=== PATIENT | female | born 1930 | race Caucasian/White ===

== ENCOUNTER 2017-04-23 14:23 | Emergency (ER) | payer MEDICARE ==
[~2017-04-23] VITALS: Ht 157.5 cm; Wt 63.6 kg
[~2017-04-23 14:23] MED LIST: /ACETCOD3T PO; /DULO30CA PO; /ESOM40CA PO; /WARF25TA OR; AMBI10TA PO; ASPI325T PO; ASPI81TA83 PO; ATOR1TAB21 PO; COLA100C2 OR; DULO1CAP3 PO; ESTR3TA PO; FOLI1TAB OR; Indapamide PO; METO1TAB87 PO; MILKSUS OR; NEUR300C PO; NEUR600T PO; NEUTSOL PO; NEXI40CA PO; OXYC10TA97 OR; PERC5TAB12 PO; PERC5TAB8 OR; PERC7.5T8 OR; SIMV5TAB2 PO; TENO25TA OR; TUMS500C OR; ZOLP10TA2 PO; ambien PO
[2017-04-23] MEDS ORDERED: diazePAM 2 MG TAB PO ONE (16:00)
--- NOTE | 2017-04-23 17:34 | REP ---
Lumbar spine series: Five views. History: Injury in a fall. Findings: Five views of the lumbar spine are compared with November 2011 prior exam. Findings: There is nearly complete anterior wedging of the T12 vertebral body. There has been progressive loss of vertebral body height at this level since the November 2011 prior study. Mild wedging was present on the 2011 prior exam. Vertebral body heights are otherwise preserved. There is mild disc space narrowing at L4-5 and at L5-S1. Moderate osteoarthritic facet hypertrophy, sclerosis, and joint space narrowing are noted bilaterally at L5-S1, L4-5, and L3-4. These changes are a bit more pronounced than on the 2012 exam. Sacrum and SI joints are intact. Psoas margins are symmetric. No acute fracture is evident. Impression: No acute lumbar spine fracture seen. Old nearly complete collapse of T12. There is reactive spur formation at T11-12 and T12-L1. There has been progressive loss of vertebral body height at T12 since the 2011 prior study. Degenerative disc and osteoarthritic facet changes are noted. Signed by Luis Antonio Carbajal MD 04/26/2017 07:46 A
[2017-04-23] MEDS ORDERED: CYCL5TAB PO (17:48)
[2017-04-23 18:01] VITALS: BP 147/87
== END 2017-04-23 18:02 | disposition home or self-care (01) ==
LOC: M ED 14:23
DX: M51.36 Other intervertebral disc degeneration, lumbar region (principal); M51.37 Other intervertebral disc degeneration, lumbosacral region; G89.29 Other chronic pain; I10 Essential (primary) hypertension; M19.90 Unspecified osteoarthritis, unspecified site; F41.9 Anxiety disorder, unspecified; F33.9 Major depressive disorder, recurrent, unspecified; E78.5 Hyperlipidemia, unspecified; Z79.899 Other long term (current) drug therapy; Z79.82 Long term (current) use of aspirin; Z86.73 Personal history of transient ischemic attack (TIA), and cerebral infarction without residual deficits; Z98.890 Other specified postprocedural states

== ENCOUNTER 2017-05-19 15:07 | Emergency (ER) | payer MEDICARE ==
[~2017-05-19 15:07] MED LIST changes: +CYCL5TAB PO
[2017-05-19] MEDS ORDERED: LATA5OPD (15:26)
[2017-05-19] MEDS ORDERED: DORZ2OPD (15:26)
[2017-05-19] MEDS ORDERED: OXYCODONE (15:26)
[2017-05-19] MEDS ORDERED: ZOLP10TA2 (15:26)
--- NOTE | 2017-05-19 16:59 | REP ---
Chest two views HISTORY: Shortness of breath Comparison: 04/27/2011 There is elevation of the right hemidiaphragm. The lungs are clear. The heart is normal in size. The pulmonary vasculature is normal in appearance. A hiatal hernia is present. The bony structure is intact. IMPRESSION: No acute disease. Signed by Nigel Sánchez MD 05/19/2017 04:51 P
--- NOTE | 2017-05-19 17:03 | REP ---
KUB, ONE VIEW: HISTORY: Constipation. A small amount of air is present in the small and large intestine. There are no air fluid levels or dilated loops of intestine. There is no pneumoperitoneum A mild amount of stool is present in the colon. Surgical clips are present in the right upper quadrant. IMPRESSION: Nonspecific bowel gas pattern. Signed by Nigel Sánchez MD 05/19/2017 05:05 P
--- NOTE | 2017-05-19 17:18 | ECGEPIP ---
Stationary ECG Study [facility] - ED Test Date: 2017-05-19 Pat Name: PALLAVI HAIRSTON Department: Room: - Gender: F Dish Up Person: osei : 1930 Requested By: LESLY RODRIGUEZ Order Number: [id number] Reading MD: Jose Antonio Braun Measurements Intervals [place] Rate: 100 P: 59 UT: 157 QRS: 10 QRSD: 77 T: 7 QT: 334 QTc: 433 Interpretive Statements SINUS TACHYCARDIA POSSIBLE LEFT ATRIAL ENLARGEMENT Electronically Signed On 05-19-2017 17:10:45 EDT by Jose Antonio Braun
[2017-05-19 17:20] LABS: BASO # 0.1 10^3/uL (0.0-0.2); BASO % 0.8 % (0.0-1.0); EOS % 0.5 % (0.0-3.0); IMMATURE GRANULOCYTE % 0.8 % (0-0); LYMPH # 1.5 10^3/uL (1.5-4.5); LYMPH % 19.8 % (24.0-44.0); MEAN CORPUSCULAR HEMOGLOBIN 29.5 pg (27.0-33.0); MEAN CORPUSCULAR HGB CONC 33.8 g/dl (32.0-36.5); MEAN CORPUSCULAR VOLUME 87.5 fl (80.0-96.0); MONO # 0.8 10^3/uL (0.0-0.8); NEUTROPHILS % 67.1 % (36.0-66.0); PLATELET COUNT, AUTOMATED 271 10^3/uL (150-450); RED CELL DISTRIBUTION WIDTH 15.6 % (11.5-14.5); WHITE BLOOD COUNT 7.5 10^3/uL (4.0-10.0)
[2017-05-19 17:54] LABS: ANION GAP 9 MEQ/L (8-16); BLOOD UREA NITROGEN 12 MG/DL (7-18); CALCIUM LEVEL 9.2 MG/DL (8.8-10.2); CARBON DIOXIDE LEVEL 28 MEQ/L (21-32); CHLORIDE LEVEL 104 MEQ/L (98-107); CREATININE FOR GFR 0.76 MG/DL (0.55-1.02); GLOMERULAR FILTRATION RATE > 60.0 (>32); GLUCOSE, FASTING 124 MG/DL (83-110); POTASSIUM SERUM 3.7 MEQ/L (3.5-5.1); SODIUM LEVEL 141 MEQ/L (136-145)
[2017-05-19 18:19] VITALS: BP 155/77
== END 2017-05-19 18:40 | disposition home or self-care (01) ==
LOC: M ED 15:07
DX: G89.29 Other chronic pain (principal); M54.9 Dorsalgia, unspecified; R00.0 Tachycardia, unspecified; I10 Essential (primary) hypertension; F41.9 Anxiety disorder, unspecified; F32.9 Major depressive disorder, single episode, unspecified; Z79.82 Long term (current) use of aspirin; Z79.899 Other long term (current) drug therapy

== ENCOUNTER → 2017-06-21 | Outpatient (CLI) | payer MEDICARE, OTHER ==
[~2017-06-21] MED LIST changes: +DORZ2OPD; +LATA5OPD; +OXYCODONE; +ZOLP10TA2
--- NOTE | 2017-07-08 00:55 | ECWPNPC ---
PATIENT NAME: PALLAVI HAIRSTON : 1930 GENDER: FEMALE VISIT DATE: 06/21/2017 DISCHARGE DATE: 06/21/17 1525 VISIT LOCKED DATE TIME: PHYSICIAN: KENNY GAMEZ RESOURCE: KENNY GAMEZ REASON FOR APPOINTMENT 1. LOW BACK PAIN HISTORY OF PRESENT ILLNESS NEW PATIENT CONSULT: WHEN DID YOUR PAIN FIRST START? . BRIEFLY DESCRIBE HOW YOUR PAIN STARTED? . HOW DOES YOUR PAIN CHANGE WITH TIME? . DOES YOUR PAIN AWAKEN YOU FROM SLEEP? . HOW MANY HOURS OF SLEEP DO YOU NORMALLY GET? . ANY DIAGNOSTIC TESTING? . FACILITY WHERE TESTS WERE DONE? ____. PAIN TREATMENT TREATMENT YES CANCER HAVE YOU EVER HAD ANY TYPE OF CANCER?NO NO. 87 YEAR OLD MALE PATIENT WITH HISTORY OF CHRONIC LOW BACK PAIN. PATIENT DESCRIBES THE PAIN ACHING WITH THE PAIN COMING AND GOING WITH A PAIN SCORE OF 7-8/10. PATIENT REPORTS THE PAIN STARTING MANY YEARS AGO AND WAS DOING FAIRLY WELL UNTIL HE HAD A FALL IN AND SINCE THEN THE PAIN HAS GOTTEN PROGRESSIVELY WORSE. MRS. HAIRSTON REPORTS GETTING INJECTIONS IN 2011 AND STATES THAT THEY AIDED IN PAIN RELIEF FOR A GOOD PERIOD OF TIME. CURRENTLY THE PATIENT IS USING OXYCODONE AND STATES THAT IT TAKES THE EDGE OFF AND WITHOUT THE MEDICATION SHE WOULD NOT BE ABLE TO FUNCTION WITHOUT IT. PATIENT HAS TRIED PHYSICAL THERAPY IN THE PAST AND REPORTS THAT IT ONLY GAVE HER TEMPORARY RELIEF. PATIENT STATES THAT MEDICATION IS THE ONLY THING THAT AIDS HER IN PAIN RELIEF AT THIS TIME. PAIN SCREENING: PATIENT HAS A COMPLAINT OF ACUTE OR CHRONIC PAIN :YES FALL RISK SCREENING: SCREENING :NO FALLS IN THE PAST YEAR NAILS INVENTORY: QUESTIONNAIRE ASSESSEDTBD SCORE VALUE CALCULATED TBD CURRENT MEDICATIONS TAKING METOPROLOL TARTRATE 25 MG TABLET 1/2 TABLET WITH FOOD ORALLY TWICE A DAY TAKING OXYCODONE-ACETAMINOPHEN 5-325 MG TABLET 1 TABLET NEEDED ORALLY EVERY 6 HRS, NOTES: MAX OF 4 PER DAY TAKING ASPIRIN 81 MG TABLET 1 TABLET ORALLY ONCE A DAY TAKING NEXIUM 40 MG CAPSULE DELAYED RELEASE 1 TAB(S) ORALLY DAILY TAKING AMBIEN 10 MG TABLET 1 TAB(S) ORAL AT BEDTIME NOT-TAKING KEFLEX 500 MG CAPSULE 4 CAPSULE ORALLY 1 HR BEFORE PROCEDURE NOT-TAKING GABAPENTIN 600 600 MG TABLET 1 TAB(S) ORAL THREE TIMES DAILY NOT-TAKING CYMBALTA 60 MG CAPSULE DELAYED RELEASE PARTICLES 1 CAPSULE ORALLY ONCE A DAY NOT-TAKING VICODIN 5-500 MG TABLET 1 TAB(S) ORALLY EVERY 6 HRS NEEDED FOR PAIN MEDICATION LIST REVIEWED AND RECONCILED WITH THE PATIENT PAST MEDICAL HISTORY CHRONIC LOW BACK AND MID THORACIC PAIN PERIPHERAL POLYNEUROPATHY ESSENTIAL TREMORS GERD ALLERGIES N.K.D.A. SURGICAL HISTORY HYSTERECTOMY KNEE REPLACEMENT--LEFT CATARACTS - NEW LENSES BOTH EYES FAMILY HISTORY FATHER: MOTHER: , DIAGNOSED WITH HEART DISEASE SOCIAL HISTORY GENERAL: TOBACCO USE ARE YOU A:NONSMOKER NEVER SMOKED ALCOHOL SCREENING POINTS0 INTERPRETATIONNEGATIVE RECREATIONAL DRUG USE DRUG USE?NO CAFFEINE CAFFEINE USE?NO DIET: REGULAR. EXERCISE: NO REGULAR EXERCISE. OTHERS AT HOME: NONE. ADVENTIST [id number] QUAKER LANGUAGE LANGUAGES SPOKEN:QATARI LEARNING BARRIERS / SPECIAL NEEDS BARRIERS TO LEARNING?YES HEARING IMPAIRED?YES CAN'T HEAR SOFT VOICES VISION IMPAIRED?YES :CORRECTIVE LENSES COGNITIVELY IMPAIRED?YES STATES SHE FORGETS THINGS EASLILY READINESS TO LEARN?YES LEARNING PREFERENCES?NO LEARNING CAPABILITIES PRESENT?YES EMOTIONAL BARRIERS?NO SPECIAL DEVICES?YES :MARCO A MILLAN INSURANCE CLAIMS CLERK NEEDED?NO PAIN CLINIC PFS, CLERGY, PUBLIC HEALTH REFERRALS PFS REFERRAL NEEDED?NO CLERGY REFERRAL NEEDED?NO PUBLIC HEALTH REFERRAL NEEDED?NO WAS THE PROVIDER NOTIFIED OF ANY PERTINENT INFO?NO HAS THE PATIENT BEEN EDUCATED REGARDING HIS/HER PLAN OF CARE?YES HAS THE PATIENT BEEN EDUCATED REGARDING PAIN, THE RISK FOR PAIN, THE IMPORTANCE OF EFFECTIVE PAIN MANAGEMENT, AND THE PAIN ASSESSMENT PROCESS?YES PATIENT: ____. ADVANCE DIRECTIVES HEALTH CARE PROXY?YES NAME OF HCP DAUGHTER--EDNA RIVERO CONTACT # FOR HCP [phone] DO YOU HAVE A COPY WITH YOU?NO DO YOU HAVE A DNR?YES LIVING WILL?YES POWER OF AUTOMOBILE TECHNICIAN?YES NAME OF POA? DAUGHTER--EDNA RIVERO PHONE # OF POA? [phone] DO YOU HAVE A COPY WITH YOU?NO HAVE YOU HAD A COPY OF ANY ADVANCED DIRECTIVE (LISTED ABOVE) ON A PREVIOUS MEDICAL RECORDS AT [facility]?NO DOMESTIC VIOLENCE DO YOU FEEL SAFE IN YOUR ENVIRONMENT?NO HOSPITALIZATION/MAJOR DIAGNOSTIC PROCEDURE SEE ABOVE CVA 2016 REVIEW OF SYSTEMS REVIEWED BY: PROVIDER: . CONSTITUTIONAL: ANY CHANGE IN YOUR MEDICAL CONDITION? NO . CHILLS NO . FEVER NO . INFECTION: DO YOU HAVE NEW INFECTIONS? NO . DO YOU HAVE HISTORY OF MRSA? NO . MUSCULOSKELETAL: ANY NEW PATTERNS OF PAIN OR NUMBNESS? NO . SYTEMIC LUPUS NO . GASTROENTEROLOGY: ANY NEW CHANGE IN BOWEL CONTROL? NO . BARRETTS ESOPHAGUS NO . CIRRHOSIS NO . HEPATITIS NO . LIVER FAILURE NO . ACID REFLUX YES . UNEXPLAINED WEIGHT LOSS NO . GENITOURINARY: ANY NEW CHANGE IN BLADDER CONTROL? YES VOIDS MORE OFTEN . IS THERE A CHANCE YOU COULD BE ? NO . HEMATOLOGY/LYMPH: DO YOU TAKE ANY BLOOD THINNERS? (FOR EXAMPLE- COUMADIN, PLAVIX, AGGRENOX, PLATEL, PRADAXA, OR XARELTO) NO . WHEN WAS YOUR LAST DOSE? DATE: TIME: . LOW PLATELET COUNT NO . SICKLE CELL DISEASE NO . VON WILLIEBRANDS NO . FACTOR V LEIDEN NO . THALLASEMIA NO . ANEMIA NO . EASY BRUISING YES, ARMS AND LEGS, ON ASPIRIN . NEUROLOGY: HAVE YOU FALLEN IN THE PAST 6 MONTHS? YES , 4WEEKS AGO / HAS LIFELINE . ANY NEW EXTREMITY NUMBNESS OR WEAKNESS? NO HAS A HISTORY OF MILD CVA . HEAD INJURY NO . DEMENTIA NO . CEREBRAL PALSY NO . MULTIPLE SCLEROSIS NO . DIZZINESS NO . HEADACHE NO . STROKES NO . VERTIGO NO . CARDIOLOGY: DO YOU HAVE A PACEMAKER OR DEFIBRILLATOR? NO . ANGINA NO . HEART ATTACK NO . HEART SURGERY NO . CONGESTIVE HEART FAILURE/FLUID OVERLOAD NO . CHEST PAIN NO . HIGH BLOOD PRESSURE NO . IRREGULAR HEART BEAT NO . RESPIRATORY: HAVE YOU BEEN SICK IN THE PAST WEEK? NO . FEVER NO . FLU LIKE SYMPTOMS? NO . CPAP NO . BYPAP NO . ASTHMA NO . EMPHYSEMA NO . CHRONIC LUNG DISEASES NO . SHORTNESS OF BREATH ON EXERTION NO . DO YOU USE ANY TYPE OF TOBACCO (SMOKE, SMOKELESS, CHEW)? NO . COUGH NO . SNORING NO . INTEGUMENTARY: DO YOU HAVE ANY RASHES OR OPEN SORES? YES, ABRASIONS AND SKIN TEARS ALL OVER . ALLERGIC/IMMUNO: ARE YOU ALLERGIC TO SHELLFISH OR IV DYE? NO . ANY NEW ALLERGIES? NO . PSYCHIATRIC: DO YOU HAVE THOUGHTS OF HURTING YOURSELF OR SOMEONE ELSE? NO . ARE YOU ABUSED, NEGLECTED, OR IN AN UNSAFE ENVIRONMENT? NO COUSIN WHO IS WITH HER FEELS SHE SHOULD NOT LIVE ALONE. SHE STATED SHE FELT THAT IT WAS UNSAFE FOR HER TO LIVE BY HERSELF . ENDOCRINOLOGY: ARE YOU DIABETIC? NO . THYROID DISORDER NO . OTHER: DO YOU NEED ANY PRESCRIPTIONS? NO . IF YES, PLEASE LIST: ____ . ANY NEW PROBLEMS WITH YOUR MEDICATIONS? NO . WHEN DID YOU LAST EAT? ____ . WHEN DID YOU LAST DRINK? ____ . WHAT DID YOU LAST DRINK? ____ . NAME OF PERSON DRIVING YOU HOME? ____ . DO YOU HAVE ANY OTHER QUESTIONS OR CONCERNS NO . VITAL SIGNS WT 140.0 LBS, HT 62 IN, BMI 25.60 INDEX, BP 153/87 MM HG, HR 106 /MIN, RR 16 /MIN, TEMP 97.0 F, OXYGEN SAT % 97%, SAFE IN ENV? (Y/N) Y, NA INITIALS TL 1255, REVIEWED BY: OJ. EXAMINATION : PATIENT IS ALERT O X 3 AND COOPERATIVE. TENDERNESS IN THE THORACOLUMBAR AREA AND PARASPINAL MUSCLE GROUP. UNSTEADY GAIT. MRI DONE OF THE LUMBAR SPINE DONE ON 12/26/2016 SHOWS MULTIPLE DISC BULGES, DEGENERATIVE DISC DISEASE, AND COMPRESSION DEFORMITY AT T12. ,LUNGS CLEAR, TO AUSCULTATION. HEART NO MURMURS NO GALLOPS; FACIAL CRANIAL NERVES ARE GROSSLY NORMAL. GOOD SYMMETRY OF FACIAL MUSCLE MOVEMENT. NORMAL VISUAL MIGUEL. ABDOMINAL SOFT AND DEPRESSIBLE. ASSESSMENTS SPONDYLOSIS OF LUMBAR REGION WITHOUT MYELOPATHY OR RADICULOPATHY - M47.816 (PRIMARY) SPONDYLOSIS OF LUMBOSACRAL REGION WITHOUT MYELOPATHY OR RADICULOPATHY - M47.817 TREATMENT SPONDYLOSIS OF LUMBAR REGION WITHOUT MYELOPATHY OR RADICULOPATHY NOTES: WE DISCUSSED SEVERAL ISSUES WITH MRS. HAIRSTON'S PAIN MANAGEMENT CASE. AT THIS TIME THE PATIENT WILL CONTINUE WITH THE SAME MEDICATION REGIME BEFORE. PATIENT'S PRIMARY DOCTOR WILL NEED TO SPEAK TO MYSELF OR NURSING UNIT COORDINATOR TO DISCUSS A MEDICATION REGIME FOR THE PATIENT. AT THIS TIME THE PATIENT DOES NOT WANT TO MOVE FORWARD WITH INTERVENTIONS AFTER A DETAILED DISCUSSION OF WHAT MAY AID THE PATIENT IN PAIN RELIEF. PATIENT WILL RETURN TO THE CLINIC IN 3 WEEKS TO DISCUSS MEDICATIONS WITH A NURSING UNIT COORDINATOR. INSTRUCTIONS WERE GIVEN, QUESTIONS WERE ANSWERED, PATIENT REPORTS UNDERSTANDING AND AGREES WITH THE PLAN. I, JOSELUIS KAUR, DOCUMENTED THE ABOVE INFORMATION ACTING A SCRIBE FOR DR. GAMEZ. I HAVE REVIEWED THE ABOVE DOCUMENT, WRITTEN BY JOSELUIS MCDONALD AND I VERIFY THAT IT IS ACCURATE. DEAR DR. BEAL:THANK YOU FOR YOUR KIND REFERRAL OF MRS. HAIRSTON. IF YOU WANT TO DISCUSS HER CASE WITH ME PLEASE CALL ME AT THE PAIN CENTER AT [phone]. SINCERELY,KENNY GAMEZ, [facility]. PROCEDURE CODES FA211 ESTABILISHED PATIENT [facility] FACILITY CHARGE G8427 DOC MEDS VERIFIED W/PT OR RE G8730 PAIN ASSESS POS TOOL F/U PLAN DOC DISPOSITION & COMMUNICATION FOLLOW UP 3 WEEKS ELECTRONICALLY SIGNED BY KENNY GAMEZ MD ON 07/05/2017 AT 09:58 AM EST DISCLAIMER : THIS IS A VISIT SUMMARY EXTRACTED FROM THE [employer] CHART. IT IS NOT A COPY OF THE [employer] PROGRESS NOTE. AUBREY
== END ==
LOC: M PAIN 13:00
PROVIDERS: ATTEND Anesthesiology
DX: G89.29 Other chronic pain (principal); M47.816 Spondylosis without myelopathy or radiculopathy, lumbar region; M47.817 Spondylosis without myelopathy or radiculopathy, lumbosacral region; G62.9 Polyneuropathy, unspecified; G25.0 Essential tremor; K21.9 Gastro-esophageal reflux disease without esophagitis; Z79.891 Long term (current) use of opiate analgesic; Z79.899 Other long term (current) drug therapy; Z79.82 Long term (current) use of aspirin; Z96.652 Presence of left artificial knee joint

== ENCOUNTER → 2017-07-15 | Outpatient (CLI) | payer MEDICARE, OTHER | LOC: M PAIN 13:00 | DX: G89.29 Other chronic pain (principal); M47.816 Spondylosis without myelopathy or radiculopathy, lumbar region; G62.9 Polyneuropathy, unspecified; G25.0 Essential tremor; Z79.891 Long term (current) use of opiate analgesic; Z79.82 Long term (current) use of aspirin; Z79.899 Other long term (current) drug therapy | CPT/HCPCS: G0463 ==

== ENCOUNTER → 2017-09-03 | Outpatient (REF) | payer MEDICARE, OTHER ==
[2017-09-03 14:42] LABS: APPEARANCE, URINE CLOUDY (CLEAR); BACTERIA, URINE AUTO 2+ (NEGATIVE); BILIRUBIN, URINE AUTO NEGATIVE (NEGATIVE); BLOOD, URINE BLOOD 1+ (NEGATIVE); COLOR, URINE YELLOW (YELLOW); GLUCOSE, URINE (UA) AUTO NEGATIVE (NEGATIVE); KETONE, URINE AUTO NEGATIVE (NEGATIVE); LEUKOCYTE ESTERASE, URINE AUTO 3+ (NEGATIVE); MUCUS, URINE SMALL (NEGATIVE); NITRITE, URINE AUTO NEGATIVE (NEGATIVE); PROTEIN, URINE AUTO 1+ mg/dL (NEGATIVE); RBC, URINE AUTO 33 /HPF (0-3); SQUAMOUS EPITHELIAL CELL UR AU 1 /HPF (0-6); UROBILINOGEN, URINE AUTO 0.2 mg/dL (0.0-2.0); WBC, URINE AUTO TNTC /HPF (0-3)
== END ==
LOC: M LAB REF 13:26
DX: N39.0 Urinary tract infection, site not specified (principal)
CPT/HCPCS: 81001

== ENCOUNTER → 2018-07-05 | Outpatient (REF) | payer MEDICARE, OTHER | LOC: M LAB REF 20:34 | DX: D49.2 Neoplasm of unspecified behavior of bone, soft tissue, and skin (principal) | CPT/HCPCS: 88305 ==

== ENCOUNTER → 2018-07-21 | Outpatient (CLI) | payer MEDICARE ==
[2018-07-21 19:44] LABS: BASO # 0.1 10^3/uL (0.0-0.2); EOS # 0.1 10^3/uL (0.0-0.50); EOS % 1.3 % (0.0-3.0); HEMATOCRIT 41.3 % (36.0-47.0); HEMOGLOBIN 13.8 g/dl (12.0-15.5); IMMATURE GRANULOCYTE % 0.6 % (0-3.0); LYMPH # 1.5 10^3/uL (1.5-4.5); MEAN CORPUSCULAR HEMOGLOBIN 29.1 pg (27.0-33.0); MEAN CORPUSCULAR HGB CONC 33.4 g/dl (32.0-36.5); MEAN CORPUSCULAR VOLUME 87.1 fl (80.0-96.0); MONO # 0.7 10^3/uL (0.0-0.8); MONO % 11.2 % (0.0-5.0); NEUTROPHILS # 3.9 10^3/uL (1.8-7.7); NEUTROPHILS % 61.9 % (36.0-66.0); PLATELET COUNT, AUTOMATED 313 10^3/uL (150-450); RED BLOOD COUNT 4.74 10^6/uL (4.00-5.40); RED CELL DISTRIBUTION WIDTH 16.4 % (11.5-14.5); WHITE BLOOD COUNT 6.3 10^3/uL (4.0-10.0)
[2018-07-21 19:48] LABS: ALBUMIN 3.8 GM/DL (3.2-5.2); ALBUMIN/GLOBULIN RATIO 1.12 (1.00-1.93); ALKALINE PHOSPHATASE 68 U/L (45-117); ALT/SGPT 10 U/L (12-78); ANION GAP 8 MEQ/L (8-16); AST/SGOT 10 U/L (7-37); BILIRUBIN,TOTAL 0.6 MG/DL (0.2-1.0); BLOOD UREA NITROGEN 12 MG/DL (7-18); CALCIUM LEVEL 9.1 MG/DL (8.8-10.2); CARBON DIOXIDE LEVEL 29 MEQ/L (21-32); CHLORIDE LEVEL 107 MEQ/L (98-107); CREATININE FOR GFR 0.84 MG/DL (0.55-1.30); GLOMERULAR FILTRATION RATE > 60.0 (>32); GLUCOSE, FASTING 124 MG/DL (70-100); POTASSIUM SERUM 3.9 MEQ/L (3.5-5.1); SODIUM LEVEL 144 MEQ/L (136-145); TOTAL PROTEIN 7.2 GM/DL (6.4-8.2)
== END ==
LOC: M WUC 15:33
DX: Z01.818 Encounter for other preprocedural examination (principal); K46.9 Unspecified abdominal hernia without obstruction or gangrene; I10 Essential (primary) hypertension; Z90.49 Acquired absence of other specified parts of digestive tract
CPT/HCPCS: 80053

== ENCOUNTER 2018-07-27 10:54 | Day surgery (SDC) | payer MEDICARE ==
[2018-07-27] MEDS ORDERED: ceFAZolin 1GM INJ (J0690 PER 500MG) As Ordered (11:24)
[2018-07-27] MEDS: LR 1,000 ML IV (11:39)
[2018-07-27] MEDS ORDERED: PROPOFOL 200 MG/20 ML VIAL As Ordered (12:10)
[2018-07-27] MEDS ORDERED: LIDOCAINE 2% INJ 100 MG/5 ML SDV (FOR ANES.) As Ordered (12:10)
[2018-07-27] MEDS ORDERED: fentaNYL 100 MCG/2 ML INJECTION (J3010) As Ordered (12:10)
[2018-07-27] MEDS ORDERED: dexameTHASONE 4 MG/ML 1ML VIAL (J1100) As Ordered (12:10)
[2018-07-27] MEDS ORDERED: ONDANSETRON 4MG/2ML VIAL (J2405) As Ordered (12:10)
[2018-07-27] MEDS ORDERED: METOPROLOL 5 MG/5 ML VIAL As Ordered (14:08)
[2018-07-27] MEDS ORDERED: ePHEDrine SULFATE 25 MG/5 ML(5MG/ML) SYRINGE As Ordered (14:49)
[2018-07-27] MEDS: LIDOCAINE W/EPINEPHRINE 1% 20ML VIAL As Ordered (15:27)
[2018-07-27] MEDS: LIDOCAINE 2% W/EPIN INJ 20ML **PRES FREE As Ordered (15:27)
[2018-07-27] MEDS: BACITRACIN OINT 30GM As Ordered (15:52)
[2018-07-27] MEDS ORDERED: fentaNYL 100 MCG/2 ML INJECTION (J3010) IV (16:15)
[2018-07-27] MEDS ORDERED: ONDANSETRON 4MG/2ML VIAL (J2405) IV (16:15)
[2018-07-27] MEDS: ACETAMINOPH W/CODEINE #3 TAB UD PO (23:19)
[2018-07-28] MEDS: LR 1,000 ML IV (07:37)
== END 2018-07-28 12:46 | disposition home or self-care (01) ==
LOC: M SDC 10:54 → M MSPAV 16:45
DX: C44.712 Basal cell carcinoma of skin of right lower limb, including hip (principal); I10 Essential (primary) hypertension; K21.9 Gastro-esophageal reflux disease without esophagitis; M12.9 Arthropathy, unspecified; L40.9 Psoriasis, unspecified; F41.9 Anxiety disorder, unspecified; F03.90 Unspecified dementia, unspecified severity, without behavioral disturbance, psychotic disturbance, mood disturbance, and anxiety; F32.9 Major depressive disorder, single episode, unspecified; R06.83 Snoring; F51.3 Sleepwalking [somnambulism]; Z79.899 Other long term (current) drug therapy; Z79.82 Long term (current) use of aspirin; Z86.73 Personal history of transient ischemic attack (TIA), and cerebral infarction without residual deficits; Z96.652 Presence of left artificial knee joint; Z90.710 Acquired absence of both cervix and uterus; Z98.41 Cataract extraction status, right eye; Z98.42 Cataract extraction status, left eye; Z96.1 Presence of intraocular lens
CPT/HCPCS: 14021

== ENCOUNTER 2020-01-25 11:15 | Inpatient (IN) | payer MEDICARE ==
[~2020-01-25] VITALS: Ht 154.9 cm; Wt 51.4 kg
[~2020-01-25 11:15] MED LIST changes: -/ACETCOD3T PO; -/DULO30CA PO; -/ESOM40CA PO; -/WARF25TA OR; +ACET1TAB16 PO; +ASPI-1 PO; -ASPI325T PO; +COUM1TAB18 OR; +CYMB1CAP5 PO; -DULO1CAP3 PO; +DULO1CAP6 PO; +LATA0.0013; -LATA5OPD; +NEXI1CAP3 PO; +OXYC1TAB23 PO
[2020-01-25] MEDS ORDERED: LATA0.0015 OU (11:44)
[2020-01-25] MEDS ORDERED: DORZ2SOL4 OU (11:44)
[2020-01-25 11:53] LABS: BASO % 0.5 % (0.0-1.0); HEMATOCRIT 41.8 % (36.0-47.0); HEMOGLOBIN 14.3 g/dl (12.0-15.5); LYMPH # 0.5 10^3/uL (1.5-5.0); LYMPH % 5.8 % (24.0-44.0); MEAN CORPUSCULAR HEMOGLOBIN 29.8 pg (27.0-33.0); MEAN CORPUSCULAR HGB CONC 34.2 g/dl (32.0-36.5); MEAN CORPUSCULAR VOLUME 87.1 fl (80.0-96.0); MONO # 0.7 10^3/uL (0.0-0.8); MONO % 7.6 % (0.0-5.0); NEUTROPHILS # 7.6 10^3/uL (1.5-8.5); NEUTROPHILS % 85.6 % (36.0-66.0); PLATELET COUNT, AUTOMATED 271 10^3/uL (150-450); WHITE BLOOD COUNT 8.8 10^3/uL (4.0-10.0)
[2020-01-25] MEDS ORDERED: LABETALOL 100MG/20ML VIAL IV STA (12:19)
[2020-01-25] MEDS ORDERED: POTASSIUM CHLORIDE 10 MEQ SR TABLET PO ONE (12:30)
[2020-01-25 12:53] LABS: INR 1.04; PROTHROMBIN TIME 13.3 SECONDS (11.8-14.0)
[2020-01-25 12:54] LABS: PARTIAL THROMBOPLASTIN TIME 28.8 SECONDS (25.0-38.4)
[2020-01-25 13:14] LABS: ALBUMIN 3.8 GM/DL (3.2-5.2); ALT/SGPT 14 U/L (12-78); BILIRUBIN,DIRECT 0.3 MG/DL (0.0-0.2); BILIRUBIN,TOTAL 1.2 MG/DL (0.2-1.0); CK-MB VALUE MASS 3.6 NG/ML (<3.6); CPK CREATINE PHOSPHOKINASE 218 U/L (26-192); FREE T4 1.16 NG/DL (0.76-1.46); MAGNESIUM LEVEL 1.8 MG/DL (1.8-2.4); MB/CK RELATIVE INDEX 1.65 (< OR =4); THYROID STIMULATING HORMONE 0.968 uIU/ML (0.358-3.740); TOTAL PROTEIN 6.9 GM/DL (6.4-8.2); TROPONIN I < 0.02 NG/ML (< 0.10)
--- NOTE | 2020-01-25 14:10 | REP ---
CT study of the cervical spine without contrast: History: Trauma. Technique: Helical scanning is acquired and overlapping 2 mm high resolution axial images were generated and reviewed at bone and soft tissue window settings. Coronal and sagittal multiplanar re-formations images are generated. CT findings: There is degenerative spondylosis change with mild degenerative disc changes at C 04/05 C5-6 and C6-7. Osteoarthritic facet hypertrophy is noted in the cervical spine bilaterally. There is no evidence of cervical spine element fracture. No skull base fracture is seen. Cervical vertebral body heights are preserved. Alignment is normal. Facet joints are normally aligned bilaterally at each cervical level on multiplanar re-formations images. There is no evidence of intraspinal or paraspinal hematoma. No extra vertebral abnormality is seen. Impression: Degenerative spondylosis changes, otherwise negative CT study of the cervical spine without contrast. No fracture seen. Electronically Signed by Luis Antonio Carbajal MD 01/25/2020 02:01 P
--- NOTE | 2020-01-25 14:48 | REP ---
LEFT ANKLE: Four views. HISTORY: Trauma. Comparison is made with left foot radiographs from April 02, 2009. FINDINGS: There is evidence of diffuse osteoporosis with periarticular osteopenia as well. Achilles and plantar calcaneal spurring are noted. Ankle joint is preserved and ankle mortise is intact. No acute fractures seen. IMPRESSION: No acute focal bony abnormality. There is diffuse and periarticular osteopenia. Heel spurring. Electronically Signed by Luis Antonio Carbajal MD 01/25/2020 03:03 P
--- NOTE | 2020-01-25 14:50 | REP ---
AP pelvis: Single view. HISTORY: Trauma. FINDINGS: The bony pelvic ring is intact. No hip, pelvic, or sacral fracture is seen. There is mild bilateral hip joint osteoarthritis. There is some musculotendinous insertion spurring on the iliac crests bilaterally. Vascular calcification is noted. IMPRESSION: Osteoarthritic changes. No fracture or other acute bony abnormality. Electronically Signed by Luis Antonio Carbajal MD 01/25/2020 03:03 P
--- NOTE | 2020-01-25 14:50 | REP ---
CHEST X-RAY: Two views. HISTORY: Chest pain. COMPARISON CHEST X-RAY: July 21, 2018. FINDINGS: Right hemidiaphragm remains somewhat elevated and there are clips in right upper quadrant. Pleural angles are sharp. Monitoring electrodes are seen. Heart is not enlarged. The aorta is calcific and tortuous. There is a hiatal hernia behind the heart. IMPRESSION: Hiatal hernia behind the heart. Elevated right hemidiaphragm unchanged. Post cholecystectomy clips. Electronically Signed by Luis Antonio Carbajal MD 01/25/2020 03:04 P
--- NOTE | 2020-01-25 14:51 | REP ---
CT BRAIN WITHOUT CONTRAST: HISTORY: Trauma. Comparison head CT study May 07, 2016. CT FINDINGS: Digital preliminary logging rafter laborer radiograph is unremarkable. The patient is edentulous. Bone window settings demonstrate an intact bony calvarium. Visualized paranasal sinuses are clear. There is moderate vascular calcification in the distal vertebral and distal carotid arteries bilaterally. On soft tissue window settings, there is generalized volume loss. Small vessel atherosclerotic changes are seen in the periventricular white matter bilaterally. There is no evidence of intracranial hemorrhage. No acute infarction is seen. No extra-axial fluid collection, mass or midline shift is seen. IMPRESSION: Vascular calcification, generalized volume loss and small vessel changes. Findings status quo from May 07, 2016 prior study. No acute intracranial abnormality. Electronically Signed by Luis Antonio Carbajal MD 01/25/2020 03:04 P
[2020-01-25] MEDS ORDERED: ASPI-527 PO (14:53)
[2020-01-25] MEDS ORDERED: PERCOCET 5MG/325MG TAB PO PRN (15:00)
[2020-01-25] MEDS ORDERED: amLODIPine 5 MG TAB PO ONE (15:00)
--- NOTE | 2020-01-25 15:04 | HPEPDOC ---
General Date of Admission 01/25/2020 Date of Service: Jan 25, 2020 Chief Complaint The patient is a 89-year-old female Who presented to the ER after she was found down at home History of Present Illness Patient is an 89-year-old female with a PMHx of Chronic back pain 2/2 disk herniation, Hx of TIA, Neuropathy, Depression / Insomnia, GERD who presented to the emergency room after she had called her [employer] net. Patient reported that yesterday she woke up on the floor of her bathroom. She is unsure how she got there she had slowly crawled back to her bedroom and pressed her life net button. EMS was called and patient was brought to the emergency room for further evaluation. Patient reports that when she was on the ground. She is unsure of how she ended up there sees not sure if she had fallen. She denied any pain of her head, body, but she did report weakness of all her extremities. Patient denied any nausea, vomiting, chest pain, shortness of breath, cough, palpitations, fevers, chills, abdominal pain, urinary discomfort. Patient does report a few days history of diarrhea, described as loose stool. Patient reports her appetite is poor and may have expressed a weight loss of 20 pounds over last 2 months. Home Medications Scheduled Aspirin (Aspirin EC) 325 Mg Tablet.dr, 325 MG PO DAILY, (Reported) Dorzolamide HCl (Dorzolamide HCl) 2% 10ML Drops, 1 DROP OU BID, (Reported) Esomeprazole Magnesium (Nexium) 40 Mg Cap, 40 MG PO DAILY, (Reported) Latanoprost/Pf (Latanoprost 0.005% Eye Drop) 7.5 Ml Drops, 1 DROP OU QHS, ( Reported) Zolpidem Tartrate (Ambien) 10 Mg Tab, 10 MG PO QHS, (Reported) Scheduled PRN Oxycodone HCl/Acetaminophen (Oxycodone-Acetaminophen 5-325) 1 Tab Tab, 1 TAB PO Q6H PRN for PAIN, (Reported) Allergies Coded Allergies: No Known Allergies (Verified , 02/12/03) Past Medical History Medical History Chronic back pain 2/2 disk herniation, Hx of TIA, Neuropathy, Depression / Insomnia, GERD Surgical History Appendectomy Hysterectomy Cholecystectomy Tonsillectomy Left knee replacement Family History - Mother with a history of heart disease in father with no reported medical problems Social History - Denies the use of alcohol, tobacco or illicit drugs - Denies recent travel or sick contacts - Lives alone in [place] Review of Systems Other systems 10 point review of systems complete, all negative otherwise stated in HPI Vital Signs - Vitals: BP 159/88, HR 84, RR 18, Sat 98%RA, Temp 98.3F - General: Lying in bed, No acute distress, Speaking in full sentences, AAOx3 - HEENT: NC, AT, PERRLA, EOMI - CVS: RRR, +S1S2, - Murmurs / rubs / gallops - Lungs: Fair air entry bilaterally, No appreciable wheezing / rales / rhonchi - Abdomen: Soft, Non-distended, Non-tende - Extremities: No lower extremity edema, No calf tenderness - Neuro: No focal motor or sensory deficit - Skin: No visible rashes Laboratory Data Labs 24H Laboratory Tests 2 01/25/20 11:31: POC Glucose (Misc Panel) 162H, POC Sodium (Misc Panel) 140, POC Potassium (Misc Panel) 3.2L, POC Chloride (Misc Panel) 100, POC Total CO2 (Misc Panel) 24.0, POC Blood Urea Nitrogen (Misc Panel 12, POC Ionized Calcium (Misc Panel) 4.6, POC Creatinine (Misc Panel) 0.6, POC Hematocrit (Misc Panel) 44.0 01/25/20 11:32: Immature Granulocyte % (Auto) 0.5, Neutrophils (%) (Auto) 85.6H, Lymphocytes (%) (Auto) 5.8L, Monocytes (%) (Auto) 7.6H, Eosinophils (%) (Auto) 0.0, Basophils (%) (Auto) 0.5, Neutrophils # (Auto) 7.6, Lymphocytes # (Auto) 0.5L, Monocytes # (Auto) 0.7, Eosinophils # (Auto) 0.0, Basophils # (Auto) 0.0, Nucleated Red Blood Cells % (auto) 0.0 01/25/20 12:19: Prothrombin Time 13.3, Prothromb Time International Ratio 1.04, Activated Partial Thromboplast Time 28.8, Magnesium Level 1.8, Total Bilirubin 1.2H, Direct Bilirubin 0.3H, Aspartate Amino Transf (AST/SGOT) 18, Alanine Aminotransferase (ALT/SGPT) 14, Alkaline Phosphatase 47, Total Creatine Kinase 218H, Creatine Kinase MB 3.6, Creatine Kinase MB Relative Index 1.65, Troponin I < 0.02, Total Protein 6.9, Albumin 3.8, Albumin/Globulin Ratio 1.2, Thyroid Stimulating Hormone (TSH) 0.968, Free Thyroxine 1.16 01/25/20 13:20: Urine Color YELLOW, Urine Appearance CLEAR, Urine pH 6.0, Urine Specific [place] 1.013, Urine Protein NEGATIVE, Urine Glucose (UA) NEGATIVE, Urine Ketones 1+H, Urine Blood NEGATIVE, Urine Nitrite NEGATIVE, Urine Bilirubin NEGATIVE, Urine Urobilinogen 0.2, Urine Leukocyte Esterase NEGATIVE, Urine WBC (Auto) 1, Urine RBC (Auto) 1, Urine Hyaline Casts (Auto) 0, Urine Bacteria (Auto) NEGATIVE, Urine Squamous Epithelial Cells 1, Urine Sperm (Auto) CBC/BMP Laboratory Tests 01/25/20 11:32 Plan / VTE VTE Prophylaxis Ordered?: Yes Plan Plan Found down / possible syncope - Patient reports that she awoke on the ground, and was unsure of how she got there - Patient denied any urinary / stool incontinence, denied any tongue biting or frothing of the mouth - She had crawled to her bedroom to contact [employer] - Patient is hemodynamically stable and afebrile - Lab work is reviewed - Physical with no focal neurologic deficits noted - Will check ECHO / continue Telemetry monitoring / Trend troponins / Lipid profile - Will start PT / OT Hypertensive urgency - In the emergency room, patients blood pressure was noted to be systolics of 200s - Patient has no prior history of hypertension - EKG reviewed - Troponin first set is negative - Will start Amlodipine and Labetalol IV PRN with modified holding parameters Possible fall - Patient denies any pain - No focal neurologic deficits - XR Pelvis 01/24: Osteoarthritic changes. No fracture or other acute bony abn ormality. - CT head 01/24: Vascular calcification, generalized volume loss and small vessel changes. Findings status quo from May 07, 2016 prior study. No acute intracranial abnormality. - CXR 01/24: Hiatal hernia behind the heart. Elevated right hemidiaphragm unchanged. Post cholecystectomy clips. - CT cervical spien 01/24: Degenerative spondylosis changes, otherwise negative CT study of the cervical spine without contrast. No fracture seen. - XR L ankle 01/24: No acute focal bony abnormality. There is diffuse and periarticular osteopenia. Heel spurring. - c/w Tylenol and home Percocet PRN Hypokalemia - Will supplement Chronic back pain 2/2 disk herniation - c/w Pain control based on outpatient regimen Hx of TIA - c/w ASA Neuropathy Depression / Insomnia - c/w Zolpidem PRN GERD - c/w PPI DVT prophylaxis - Will start Heparin YUE CAMACHO MD Jan 25, 2020 15:04
[2020-01-25] MEDS: PANTOPRAZOLE 40MG TAB (PROTONIX) PO SCH (16:42)
[2020-01-25 17:00] VITALS: BP 115/68
[2020-01-25] MEDS: LABETALOL 100MG/20ML VIAL IV SCH ×2 (18:00→23:59)
[2020-01-25] MEDS: ASPIRIN ENTERIC 325 MG TAB PO SCH (18:09)
--- NOTE | 2020-01-25 18:29 | ECGEPIP ---
[facility] - ED Test Date: 2020-01-25 Pat Name: PALLAVI HAIRSTON Department: Room: [place] [address] Gender: Female Earring Maker: franklyn : 1930 Requested By: Jose Antonio Huynh Order Number: [id number] Reading MD: Sahara Arredondo Measurements Intervals [place] Rate: 100 P: 73 NM: 160 QRS: 0 QRSD: 79 T: 37 QT: 358 QTc: 463 Interpretive Statements SINUS TACHYCARDIA ABNORMAL RHYTHM ECG DELAYED R PROGRESSION SIMILAR 05/19/17 Electronically Signed on 01-25-2020 18:29:39 EDT by Sahara Arredondo
[2020-01-25 18:40] LABS: CK-MB VALUE MASS 3.1 NG/ML (<3.6); CPK CREATINE PHOSPHOKINASE 270 U/L (26-192); MB/CK RELATIVE INDEX 1.15 (< OR =4); TROPONIN I < 0.02 NG/ML (< 0.10)
[2020-01-25] MEDS ORDERED: SLF 3 ML SYR IV PRN (19:00)
[2020-01-25 20:00] VITALS: BP 145/80
[2020-01-25] MEDS: DORZOLAMIDE 2% OPHTH SOLN 10 ML BTL OU SCH (20:35)
[2020-01-25] MEDS: SLF 3 ML SYR IV SCH (20:35)
[2020-01-25] MEDS: HEPARIN SOD (PORCINE) 5000UNITS/ML VIAL (J1644 PER 1000UNITS) SC SCH (20:36)
[2020-01-25] MEDS: zolPIDEM TARTRATE 5 MG TAB PO PRN (21:32)
--- NOTE | 2020-01-25 23:37 | ECHO ---
DATE OF PROCEDURE: 01/25/2020 DATE OF : 1930 AGE: 89 REFERRING PROVIDER: Dr. Kaila Cast PATIENT LOCATION: Room 3216. REASON FOR STUDY: Syncope 2D MEASUREMENTS: IVS: 1.0 cm LV: 3.6 cm LVPW: 1.0 cm DOPPLER MEASUREMENTS: Peak velocity across the aortic valve: 1.1 meters per second Peak velocity across the LVOT: 0.77 meters per second Mitral E: 0.68, Mitral A: 1.2 with a ratio of less than 1.0. 2D COMMENTS: 1. Normal left ventricular size, wall thickness, and normal global left ventricular systolic function with a hyperdynamic left ventricle. The estimated left ventricular systolic ejection fraction is 65-70%. 2. The left atrium appeared to be normal. Normal right atrium and right ventricle noted in limited viewed. 3. Normal anterior atrial septum, no evidence of shunt detected. 4. Normal aortic root. 5. Trace to small pericardial effusion noted, no evidence of cardiac tamponade. 6. Mildly calcified aortic valve with normal leaflet excursion. Mildly calcified mitral annulus with normal anterior mitral valve leaflet motion. Normal tricuspid valve and pulmonic valve. The proximal pulmonary artery branches were not well visualized. 7. The inferior vena cava was not visualized. DOPPLER: No significant valvular abnormalities detected but trace mitral regurgitation. IMPRESSION: 1. Normal global left ventricular systolic function. Not mentioned above, there were features of left ventricular diastolic dysfunction manifested by abnormal relaxation. 2. Aortic valve sclerosis without stenosis or aortic regurgitation. 3. Isolated mitral annulus calcification with trace mitral regurgitation. 4. Trace to small pericardial effusion, no evidence of cardiac tamponade. 5. This was compared with prior study done in April of 2016, no remarkable changes.
[2020-01-26] VITALS (7 sets, daily range): BP systolic 110–150; BP diastolic 58–85
[2020-01-26 01:01] LABS: CK-MB VALUE MASS 2.2 NG/ML (<3.6); MB/CK RELATIVE INDEX 0.99 (< OR =4); TROPONIN I 0.02 NG/ML (< 0.10)
[2020-01-26] MEDS: HEPARIN SOD (PORCINE) 5000UNITS/ML VIAL (J1644 PER 1000UNITS) SC SCH ×3 (05:07→21:27)
[2020-01-26] MEDS: SLF 3 ML SYR IV SCH ×3 (05:07→21:27)
[2020-01-26] MEDS: LABETALOL 100MG/20ML VIAL IV SCH (05:08)
[2020-01-26 05:25] LABS: BASO % 0.5 % (0.0-1.0); EOS % 0.5 % (0.0-3.0); HEMATOCRIT 38.7 % (36.0-47.0); HEMOGLOBIN 12.9 g/dl (12.0-15.5); LYMPH # 1.5 10^3/uL (1.5-5.0); LYMPH % 24.9 % (24.0-44.0); MEAN CORPUSCULAR HEMOGLOBIN 29.5 pg (27.0-33.0); MEAN CORPUSCULAR HGB CONC 33.3 g/dl (32.0-36.5); MEAN CORPUSCULAR VOLUME 88.4 fl (80.0-96.0); MONO # 0.7 10^3/uL (0.0-0.8); MONO % 12.4 % (0.0-5.0); NEUTROPHILS # 3.6 10^3/uL (1.5-8.5); NEUTROPHILS % 61.2 % (36.0-66.0); PLATELET COUNT, AUTOMATED 274 10^3/uL (150-450); RED BLOOD COUNT 4.38 10^6/uL (4.00-5.40); WHITE BLOOD COUNT 5.9 10^3/uL (4.0-10.0)
[2020-01-26 05:48] LABS: BLOOD UREA NITROGEN 18 MG/DL (7-18); CALCIUM LEVEL 8.6 MG/DL (8.8-10.2); CARBON DIOXIDE LEVEL 30 MEQ/L (21-32); CHLORIDE LEVEL 106 MEQ/L (98-107); CHOLESTEROL LEVEL 142 MG/DL (<200); CHOLESTEROL RISK RATIO 2.958 (<5); CREATININE FOR GFR 0.78 MG/DL (0.55-1.30); GLOMERULAR FILTRATION RATE > 60.0 (>32); GLUCOSE, FASTING 108 MG/DL (70-100); HDL CHOLESTEROL 48 MG/DL (>40); LDL CHOLESTEROL 79 MG/DL (<100); MAGNESIUM LEVEL 1.9 MG/DL (1.8-2.4); NON-HDL-C 94 MG/DL; POTASSIUM SERUM 4.3 MEQ/L (3.5-5.1); SODIUM LEVEL 143 MEQ/L (136-145); TRIGLYCERIDES LEVEL 73 MG/DL (<150)
[2020-01-26] MEDS: ASPIRIN ENTERIC 325 MG TAB PO SCH (09:17)
[2020-01-26] MEDS: PANTOPRAZOLE 40MG TAB (PROTONIX) PO SCH (09:17)
[2020-01-26] MEDS: amLODIPine 5 MG TAB PO SCH (09:18)
[2020-01-26] MEDS: DORZOLAMIDE 2% OPHTH SOLN 10 ML BTL OU SCH ×2 (09:19→21:26)
--- NOTE | 2020-01-26 11:47 | IPNPDOC ---
Text Note Date of Service The patient was seen on 01/26/20. NOTE Subjective: Patient is an 89-year-old female with a PMHx of Chronic back pain 2/2 disk herniation, Hx of TIA, Neuropathy, Depression / Insomnia, GERD who presented to the emergency room after she had called her [employer]. Patient reported that yesterday she woke up on the floor of her bathroom. She is unsure how she got there she had slowly crawled back to her bedroom and pressed her [employer] net button. EMS was called and patient was brought to the emergency room for further evaluation. Patient was seen and examined at the bedside. . Patient reports that she feels fine. Has a nausea, vomiting, chest pain, shortness of breath, abdominal pain, diarrhea, or urinary discomfort. Patient has been working with physical therapy today. However, she has not yet cleared. Objective: Vitals (See below) General: Lying in bed, appears comfortable, AAOx3 HEENT: NC, AT CVS: RRR, +S1S2 Lungs: Fair air entry b/l, no appreciable wheezing, rhonchi or rales Abdomen: Soft, ND, NT Extremities: - Edema, - Calf tenderness Assessment and plan: Found down / possible syncope - possibly 2/2 HTN - Patient reports that she awoke on the ground, and was unsure of how she got there; denied incontinence, crawled to her bedroom to contact [employer] - Currently patient has been working with physical therapy, however, she has not yet cleared - She remains hemodynamically stable and afebrile - Troponin x 3 negative - ECHO 01/24: Reveals grade 1 diastolic dysfunction - c/w Telemetry monitoring - c/w PT / OT - until cleared for DC home Hypertensive urgency - In the ER, patients blood pressure was noted to be systolics of 200s; currently, patient's blood pressures have significantly improved - Patient has no prior history of hypertension - EKG reviewed - c/w Amlodipine; will DC Labetalol Possible fall - Patient denies any pain - No focal neurologic deficits - XR Pelvis 01/24: Osteoarthritic changes. No fracture or other acute bony abnormality. - CT head 01/24: Vascular calcification, generalized volume loss and small vessel changes. Findings status quo from May 07, 2016 prior study. No acute intracranial abnormality. - CXR 01/24: Hiatal hernia behind the heart. Elevated right hemidiaphragm unchanged. Post cholecystectomy clips. - CT cervical spine 01/24: Degenerative spondylosis changes, otherwise negative CT study of the cervical spine without contrast. No fracture seen. - XR L ankle 01/24: No acute focal bony abnormality. There is diffuse and periarticular osteopenia. Heel spurring. - c/w Tylenol and home Percocet PRN Weight loss / Loss of appetite - Patient reports that she has had some weight loss over the last few months, associated with a decrease in appetite - Patient has been advised to have a screening colonoscopy completed; she will think about this - Patient has never received a colonoscopy in the past and does not regularly follow up with the primary care provider - Will check stool for occult blood - Will establish PCP for age related screening s/p Hypokalemia Chronic back pain 2/2 disk herniation - c/w Pain control based on outpatient regimen Hx of TIA - c/w ASA Neuropathy Depression / Insomnia - c/w Zolpidem PRN GERD - c/w PPI DVT prophylaxis - c/w Heparin VS,Fishbone, I+O VS, Fishbone, I+O Laboratory Tests 01/26/20 04:51 Vital Signs Date Time Temp Pulse Resp B/P (MAP) Pulse Ox O2 Delivery O2 Flow Rate FiO2 01/26/20 09:18 100 146/80 01/26/20 08:00 98.1 18 96 Room Air I&O- Last 24 Hours up to 6 AM 01/26/20 06:00 Intake Total 120 ml Output Total 0 ml Balance 120 ml YUE CAMACHO MD Jan 26, 2020 11:47
[2020-01-26] MEDS: zolPIDEM TARTRATE 5 MG TAB PO PRN (22:15)
[2020-01-27] MEDS: SLF 3 ML SYR IV SCH (05:35)
[2020-01-27] MEDS: HEPARIN SOD (PORCINE) 5000UNITS/ML VIAL (J1644 PER 1000UNITS) SC SCH (05:35)
[2020-01-27 06:00] VITALS: BP 140/96
[2020-01-27 06:41] LABS: BASO # 0.1 10^3/uL (0.0-0.2); BASO % 0.9 % (0.0-1.0); EOS % 0.6 % (0.0-3.0); HEMATOCRIT 37.7 % (36.0-47.0); HEMOGLOBIN 13.1 g/dl (12.0-15.5); LYMPH # 1.6 10^3/uL (1.5-5.0); LYMPH % 22.8 % (24.0-44.0); MEAN CORPUSCULAR HEMOGLOBIN 30.6 pg (27.0-33.0); MEAN CORPUSCULAR HGB CONC 34.7 g/dl (32.0-36.5); MEAN CORPUSCULAR VOLUME 88.1 fl (80.0-96.0); MONO # 0.6 10^3/uL (0.0-0.8); MONO % 8.8 % (0.0-5.0); NEUTROPHILS # 4.6 10^3/uL (1.5-8.5); NEUTROPHILS % 66.6 % (36.0-66.0); PLATELET COUNT, AUTOMATED 272 10^3/uL (150-450); RED BLOOD COUNT 4.28 10^6/uL (4.00-5.40); WHITE BLOOD COUNT 6.8 10^3/uL (4.0-10.0)
[2020-01-27 06:57] LABS: BLOOD UREA NITROGEN 18 MG/DL (7-18); CALCIUM LEVEL 8.5 MG/DL (8.8-10.2); CARBON DIOXIDE LEVEL 29 MEQ/L (21-32); CHLORIDE LEVEL 105 MEQ/L (98-107); CREATININE FOR GFR 0.65 MG/DL (0.55-1.30); GLOMERULAR FILTRATION RATE > 60.0 (>32); GLUCOSE, FASTING 100 MG/DL (70-100); MAGNESIUM LEVEL 1.9 MG/DL (1.8-2.4); POTASSIUM SERUM 3.8 MEQ/L (3.5-5.1); SODIUM LEVEL 138 MEQ/L (136-145)
[2020-01-27] MEDS: PANTOPRAZOLE 40MG TAB (PROTONIX) PO SCH (09:00)
[2020-01-27] MEDS: ASPIRIN ENTERIC 325 MG TAB PO SCH (09:00)
[2020-01-27] MEDS: amLODIPine 5 MG TAB PO SCH (09:02)
[2020-01-27] MEDS ORDERED: AMLO5TAB6 PO (09:02)
[2020-01-27] MEDS: DORZOLAMIDE 2% OPHTH SOLN 10 ML BTL OU SCH (09:02)
[2020-01-27] MEDS ORDERED: AMBI10TA PO (10:33)
--- NOTE | 2020-01-27 10:37 | DS.PDOC ---
Discharge Summary General Date of Admission Jan 25, 2020 at 14:50 Date of Discharge 01/27/2020 Discharge Summary PROCEDURES PERFORMED DURING STAY: [None]. ADMITTING DIAGNOSES / DISCHARGE DIAGNOSES: Found down / possible syncope - possibly 2/2 HTN s/p Hypertensive urgency; HTN Possible fall Weight loss / Loss of appetite s/p Hypokalemia Chronic back pain 2/2 disk herniation Hx of TIA Neuropathy Depression / Insomnia GERD DVT prophylaxis COMPLICATIONS/CHIEF COMPLAINT: Possible syncope HISTORY OF PRESENT ILLNESS: Patient is an 89-year-old female with a PMHx of Chronic back pain 2/2 disk herniation, Hx of TIA, Neuropathy, Depression / Insomnia, GERD who presented to the emergency room after she had called her [employer]. Patient reported that yesterday she woke up on the floor of her bathroom. She is unsure how she got there she had slowly crawled back to her bedroom and pressed her [employer] net button. EMS was called and patient was brought to the emergency room for further evaluation. HOSPITAL COURSE: Found down / possible syncope - possibly 2/2 HTN - Patient reports that she awoke on the ground, and was unsure of how she got there; denied incontinence, crawled to her bedroom to contact [employer] - Remains hemodynamically stable and afebrile - Troponin x 3 negative - ECHO 01/24: Reveals grade 1 diastolic dysfunction - c/w Telemetry monitoring - c/w PT / OT; cleared for DC home s/p Hypertensive urgency; HTN - In the ER, patients blood pressure was noted to be systolics of 200s - BP well controlled currently - Patient has no prior history of hypertension - EKG reviewed - c/w Amlodipine; s/p Labetalol Possible fall - Patient denies any pain - No focal neurologic deficits - XR Pelvis 01/24: Osteoarthritic changes. No fracture or other acute bony abnormality. - CT head 01/24: Vascular calcification, generalized volume loss and small vessel changes. Findings status quo from May 07, 2016 prior study. No acute intracranial abnormality. - CXR 01/24: Hiatal hernia behind the heart. Elevated right hemidiaphragm unchanged. Post cholecystectomy clips. - CT cervical spine 01/24: Degenerative spondylosis changes, otherwise negative CT study of the cervical spine without contrast. No fracture seen. - XR L ankle 01/24: No acute focal bony abnormality. There is diffuse and periarticular osteopenia. Heel spurring. - c/w Tylenol and home Percocet PRN Weight loss / Loss of appetite - Patient reports that she has had some weight loss over the last few months, associated with a decrease in appetite - Patient has been advised to have a screening colonoscopy completed; she will think about this - Patient has never received a colonoscopy in the past and does not regularly follow up with the primary care provider - Will have outpatient follow up with PCP for age related screening; patient has verbalized the importance of follow up to rule out possibility of cancer - Social work to help with establishing meals on wheels on discharge; has had difficulty getting food because of COVID s/p Hypokalemia Chronic back pain 2/2 disk herniation - c/w Pain control based on outpatient regimen Hx of TIA - c/w ASA Neuropathy Depression / Insomnia - c/w Zolpidem PRN at reduced dose GERD - c/w PPI DVT prophylaxis - c/w Heparin DISCHARGE MEDICATIONS: Please see below. ALLERGIES: Please see below. PHYSICAL EXAMINATION ON DISCHARGE: Vitals (See below) General: Lying in bed, appears comfortable, AAOx3 HEENT: NC, AT CVS: +S1S2 Lungs: Fair air entry b/l, auscultation is free of rhonchi, crackles or wheezing Abdomen: Soft, nondistended, nontender Extremities: Lower extremities are free of, - Calf tenderness LABORATORY DATA: Please see below. ACTIVITY: [As tolerated]. DISCHARGE PLAN: Home DISPOSITION: Follow-up with primary care provider within 7 days Remain compliant with treatment plan and medications Return to the ER if you experience any problems DISCHARGE CONDITION: [Stable]. TIME SPENT ON DISCHARGE: 35 minutes Vital Signs/I&Os Vital Signs Date Time Temp Pulse Resp B/P (MAP) Pulse Ox O2 Delivery O2 Flow Rate FiO2 01/27/20 06:00 98.5 104 16 140/96 (111) 99 Room Air I&O- Last 24 Hours up to 6 AM 01/27/20 06:00 Intake Total 540 ml Output Total 400 ml Balance 140 ml Laboratory Data Labs 24H Laboratory Tests 2 01/27/20 05:45: Immature Granulocyte % (Auto) 0.3, Neutrophils (%) (Auto) 66.6H, Lymphocytes (%) (Auto) 22.8L, Monocytes (%) (Auto) 8.8H, Eosinophils (%) (Auto) 0.6, Basophils (%) (Auto) 0.9, Neutrophils # (Auto) 4.6, Lymphocytes # (Auto) 1.6, Monocytes # (Auto) 0.6, Eosinophils # (Auto) 0.0, Basophils # (Auto) 0.1, Nucleated Red Blood Cells % (auto) 0.0, Anion Gap 4L, Glomerular Filtration Rate > 60.0, Calcium Level 8.5L, Magnesium Level 1.9 CBC/BMP Laboratory Tests 01/27/20 05:45 Discharge Medications Scheduled Amlodipine Besylate (Amlodipine Besylate) 5 Mg Tablet, 5 MG PO DAILY Aspirin (Aspirin EC) 325 Mg Tablet.dr, 325 MG PO DAILY, (Reported) Dorzolamide HCl (Dorzolamide HCl) 2% 10ML Drops, 1 DROP OU BID, (Reported) Esomeprazole Magnesium (Nexium) 40 Mg Cap, 40 MG PO DAILY, (Reported) Latanoprost/Pf (Latanoprost 0.005% Eye Drop) 7.5 Ml Drops, 1 DROP OU QHS, (Reported) Zolpidem Tartrate (Ambien) 10 Mg Tab, 10 MG PO QHS, (Reported) Scheduled PRN Oxycodone HCl/Acetaminophen (Oxycodone-Acetaminophen 5-325) 1 Tab Tab, 1 TAB PO Q6H PRN for PAIN, (Reported) Allergies Coded Allergies: No Known Allergies (Verified , 02/12/03) YUE CAMACHO MD Jan 27, 2020 10:37
== END 2020-01-27 12:51 | disposition home or self-care (01) | DRG 305 ==
LOC: M ED 11:15 → EDBD 11:15 → M ED INP 14:50 → ENRESERV 15:52 → M PCU 16:54 → M MSPAV 01-26 17:11
PROVIDERS: ADMIT Internal Medicine; ATTEND Internal Medicine
DX: I16.0 Hypertensive urgency (principal); R55 Syncope and collapse; E87.6 Hypokalemia; I10 Essential (primary) hypertension; K21.9 Gastro-esophageal reflux disease without esophagitis; F32.9 Major depressive disorder, single episode, unspecified; G47.00 Insomnia, unspecified; Z86.73 Personal history of transient ischemic attack (TIA), and cerebral infarction without residual deficits; G62.9 Polyneuropathy, unspecified; M51.36 Other intervertebral disc degeneration, lumbar region; Z79.82 Long term (current) use of aspirin; Z79.899 Other long term (current) drug therapy; R63.4 Abnormal weight loss

== ENCOUNTER 2020-02-25 13:07 | Emergency (ER) | payer MEDICARE ==
[~2020-02-25] VITALS: Ht 152.4 cm; Wt 55.6 kg
[~2020-02-25 13:07] MED LIST changes: +AMLO5TAB6 PO; +ASPI-527 PO; +DORZ2SOL4 OU; +LATA0.0015 OU
[2020-02-25 14:45] LABS: BASO # 0.1 10^3/uL (0.0-0.2); BASO % 0.8 % (0.0-1.0); EOS # 0.1 10^3/uL (0.0-0.5); EOS % 1.2 % (0.0-3.0); HEMATOCRIT 39.4 % (36.0-47.0); LYMPH % 15.7 % (24.0-44.0); MONO # 0.6 10^3/uL (0.0-0.8); MONO % 9.1 % (0.0-5.0); NEUTROPHILS # 4.8 10^3/uL (1.5-8.5); NEUTROPHILS % 72.7 % (36.0-66.0); PLATELET COUNT, AUTOMATED 277 10^3/uL (150-450); RED BLOOD COUNT 4.33 10^6/uL (4.00-5.40); WHITE BLOOD COUNT 6.6 10^3/uL (4.0-10.0)
--- NOTE | 2020-02-25 14:55 | REP ---
REASON: Altered mental status. COMPARISON: 01/25/2020 No significant change in the appearance of the ventricles or sulci. Diffuse cerebral and cerebellar atrophy, status quo. Deep white matter ischemic disease, status quo. There is a nonacute lacunar infarct in the head of the caudate nucleus on the left. No acute intracranial hemorrhagic or nonhemorrhagic event has developed since the last exam. There is no change in the skull or imaged paranasal sinuses. There are chronic mastoid air cell changes, status quo. IMPRESSION: No acute disease. Chronic changes, as described above. 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 Electronically Signed by Fareed Allen DO 02/25/2020 03:29 P
[2020-02-25 15:10] LABS: OSMOLALITY SERUM 287 MOSM/KG (280-301)
[2020-02-25 15:18] LABS: ALBUMIN 3.4 GM/DL (3.2-5.2); ALT/SGPT 12 U/L (12-78); BILIRUBIN,DIRECT < 0.1 MG/DL (0.0-0.2); BILIRUBIN,TOTAL 0.8 MG/DL (0.2-1.0); BLOOD UREA NITROGEN 13 MG/DL (7-18); CALCIUM LEVEL 8.6 MG/DL (8.8-10.2); CARBON DIOXIDE LEVEL 32 MEQ/L (21-32); CHLORIDE LEVEL 106 MEQ/L (98-107); CK-MB VALUE MASS 2.2 NG/ML (<3.6); CPK CREATINE PHOSPHOKINASE 82 U/L (26-192); CREATININE FOR GFR 0.74 MG/DL (0.55-1.30); GLOMERULAR FILTRATION RATE > 60.0 (>32); GLUCOSE, FASTING 102 MG/DL (70-100); MB/CK RELATIVE INDEX 2.68 (< OR =4); POTASSIUM SERUM 5.1 MEQ/L (3.5-5.1); SODIUM LEVEL 140 MEQ/L (136-145); TOTAL PROTEIN 6.7 GM/DL (6.4-8.2); TROPONIN I < 0.02 NG/ML (< 0.10)
[2020-02-25] MEDS ORDERED: KETOROLAC 30 MG/ML 1ML VIAL IV ONE (16:30)
[2020-02-25 16:49] LABS: URIC ACID 3.3 MG/DL (2.6-6.0)
--- NOTE | 2020-02-25 19:15 | ECGEPIP ---
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
[2020-02-25] MEDS ORDERED: PRED20TA PO (19:19)
[2020-02-25] MEDS ORDERED: NON-325T5 PO (19:20)
[2020-02-25 19:30] VITALS: BP 157/81
--- NOTE | 2020-02-26 08:18 | REP ---
AP pelvis and two views of the right hip were obtained. The prior AP pelvis obtained 01/25/2020 was reviewed. REASON FOR EXAM: Pain. The AP pelvis is unchanged from the prior exam showing bilateral DJD without evidence of a fracture, dislocation or subluxation. Mild chronic changes are seen involving the sacroiliac joints and imaged portion of the spine. Two views of the right hip show mild degenerative changes with rather symmetric-appearing joint space narrowing and subtle cam deformity of the superolateral humeral head. There is no acute fracture, dislocation, or subluxation. IMPRESSION: Chronic changes. Electronically Signed by Fareed Allen DO 02/26/2020 09:39 A
--- NOTE | 2020-02-26 08:28 | REP ---
REASON FOR EXAM: Pain. There is tricompartmental marginal osteophytosis. There is tricompartmental narrowing. There are calcifications and medial and lateral compartments consistent with chronic calcified meniscal degenerative changes or calcium pyrophosphate deposition disorder. There is no evidence of an acute fracture. There is a band-like zone of sclerosis in the distal femur, possibly secondary to an old healed injury. I see no definite evidence of an acute fracture. The bones are demineralized. IMPRESSION: Chronic changes as described above. Electronically Signed by Fareed Allen DO 02/26/2020 09:39 A
== END 2020-02-25 21:03 | disposition home or self-care (01) ==
LOC: M ED 13:07
DX: M17.11 Unilateral primary osteoarthritis, right knee (principal); I50.9 Heart failure, unspecified; Z86.73 Personal history of transient ischemic attack (TIA), and cerebral infarction without residual deficits; K21.9 Gastro-esophageal reflux disease without esophagitis; Z79.82 Long term (current) use of aspirin; Z79.899 Other long term (current) drug therapy
CPT/HCPCS: 70450; 73502; 73564; 80048; 80076; 81001; 82550; 82553; 83605; 83930; 84443; 84484; 84550; 85025; 93005; 94760; 96374; 99284; J1885

== ENCOUNTER 2020-04-06 13:27 | Emergency (ER) | payer MEDICARE ==
[~2020-04-06] VITALS: Ht 157.5 cm; Wt 59.1 kg
[~2020-04-06 13:27] MED LIST changes: +AMLO1TAB24 PO; -AMLO5TAB6 PO; +NON-325T5 PO; +PRED20TA PO
[2020-04-06] MEDS ORDERED: NS 1,000 ML IV SCH (13:46)
[2020-04-06 14:20] LABS: BASO % 0.5 % (0.0-1.0); EOS # 0.1 10^3/uL (0.0-0.5); EOS % 0.7 % (0.0-3.0); HEMATOCRIT 38.2 % (36.0-47.0); HEMOGLOBIN 12.9 g/dl (12.0-15.5); LYMPH # 1.2 10^3/uL (1.5-5.0); LYMPH % 13.1 % (24.0-44.0); MEAN CORPUSCULAR HEMOGLOBIN 30.9 pg (27.0-33.0); MEAN CORPUSCULAR HGB CONC 33.8 g/dl (32.0-36.5); MEAN CORPUSCULAR VOLUME 91.6 fl (80.0-96.0); MONO # 1.1 10^3/uL (0.0-0.8); MONO % 12.7 % (0.0-5.0); NEUTROPHILS # 6.3 10^3/uL (1.5-8.5); NEUTROPHILS % 72.2 % (36.0-66.0); PLATELET COUNT, AUTOMATED 357 10^3/uL (150-450); RED BLOOD COUNT 4.17 10^6/uL (4.00-5.40); WHITE BLOOD COUNT 8.8 10^3/uL (4.0-10.0)
[2020-04-06 14:55] LABS: ALBUMIN 3.2 GM/DL (3.2-5.2); ALT/SGPT 15 U/L (12-78); BILIRUBIN,DIRECT 0.4 MG/DL (0.0-0.2); BILIRUBIN,TOTAL 1.2 MG/DL (0.2-1.0); BLOOD UREA NITROGEN 9 MG/DL (7-18); CALCIUM LEVEL 8.5 MG/DL (8.8-10.2); CARBON DIOXIDE LEVEL 33 MEQ/L (21-32); CHLORIDE LEVEL 102 MEQ/L (98-107); CK-MB VALUE MASS 1.5 NG/ML (<3.6); CPK CREATINE PHOSPHOKINASE 26 U/L (26-192); GLOMERULAR FILTRATION RATE > 60.0 (>32); GLUCOSE, FASTING 101 MG/DL (70-100); MB/CK RELATIVE INDEX 5.77 (< OR =4); POTASSIUM SERUM 3.1 MEQ/L (3.5-5.1); SODIUM LEVEL 142 MEQ/L (136-145); THYROID STIMULATING HORMONE 0.965 uIU/ML (0.358-3.740); TOTAL PROTEIN 6.2 GM/DL (6.4-8.2); TROPONIN I < 0.02 NG/ML (< 0.10)
[2020-04-06] MEDS ORDERED: ACET1TAB55 PO (15:05)
[2020-04-06] MEDS ORDERED: AMLO1TAB24 PO (15:05)
[2020-04-06] MEDS ORDERED: ZOLP10TA2 PO (15:05)
[2020-04-06] MEDS ORDERED: POTASSIUM CHLORIDE 10 MEQ SR TABLET PO ONE (16:00)
[2020-04-06 18:23] VITALS: BP 208/99
--- NOTE | 2020-04-21 07:49 | ECGEPIP ---
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
--- NOTE | 2020-05-06 10:21 | REP ---
PORTABLE CHEST X-RAY CLINICAL: Altered mental status. COMPARISON: 01/25/2020. FINDINGS: Mediastinum and cardiac silhouette are normal. Elevation to the right hemidiaphragm is unchanged. Visualized lung horne are clear. Skeletal structures are intact. Evidence for prior cholecystectomy. IMPRESSION: Chronic stable changes. No acute cardiopulmonary process. MTDD
--- NOTE | 2020-05-06 10:22 | REP ---
NONCONTRAST HEAD CT CLINICAL: Altered mental status. COMPARISON: 01/25/2020. TECHNIQUE: Axial noncontrast images from the skull base to the vertex with coronal reformations. FINDINGS: Age-related atrophy with periventricular leukomalacia and microvascular ischemic changes are again appreciated. The ventricles are symmetric. Clark-white differentiation is maintained. No acute intracranial hemorrhage, mass, or mass effect. Vascular calcifications again noted. Calvarium is intact. Paranasal sinuses and mastoid air cells are clear. IMPRESSION: Atrophy and microvascular ischemic changes. No acute intracranial pathology or trauma/injury. MTDD
== END 2020-04-06 18:47 | disposition home or self-care (01) ==
LOC: EDBD 13:27 → M ED 13:27
DX: S80.02XA Contusion of left knee, initial encounter (principal); W19.XXXA Unspecified fall, initial encounter; Y92.9 Unspecified place or not applicable; Y93.89 Activity, other specified; Y99.9 Unspecified external cause status; Z86.73 Personal history of transient ischemic attack (TIA), and cerebral infarction without residual deficits; F32.9 Major depressive disorder, single episode, unspecified; G89.29 Other chronic pain; M54.9 Dorsalgia, unspecified; Z79.82 Long term (current) use of aspirin; Z79.899 Other long term (current) drug therapy